=== PATIENT | female | born 1970 | race Caucasian/White ===

== ENCOUNTER 2024-08-03 15:09 | Emergency (ER) | payer BC, SELFPAY ==
[~2024-08-03 15:09] MED LIST: Iopamidol 370 76% 100 ML VIAL ONE
[2024-08-03] MEDS ORDERED: Ketorolac Tromethamine 30 MG (1 mL) VIAL ONE ×2 (15:19→18:00)
[2024-08-03] MEDS ORDERED: Ondansetron PF 4 MG/2 ML Vial ONE ×2 (15:20→18:00)
[2024-08-03] MEDS ORDERED: Sodium Chloride 0.9% 1,000 ML ONE (15:20)
[2024-08-03] MEDS ORDERED: fentaNYL 50 mcg/mL 1 mL Vial ONE (15:31)
[2024-08-03 15:36] LABS: #Basophils 0.1 thou/uL (0.0-0.2); #Lymphocytes 2.7 thou/uL (1.20-3.40); #Monocytes 0.7 thou/uL (0.11-0.59); #Neutrophils 10.2 thou/uL (1.40-6.50); %Basophils 1.1 % (0.0-1.0); %Eosinophils 0.3 % (0.0-10.0); %Lymphocytes 19.7 % (21.0-51.0); Hematocrit 44.1 % (36.0-47.0); Hemoglobin 14.5 g/dL (12.0-16.0); Mean Corpuscular HGB CONC 32.8 g/dL (32.0-36.0); Mean Corpuscular Hemoglobin 30.3 pg (27.0-31.0); Mean Corpuscular Volume 92.3 fl (78.0-98.0); Mean Platelet Volume 5.8 fL (7.4-10.4); Platelet Count 422 10x3/uL (130-400); RBC Distribution Width 11.3 % (11.5-14.5); Red Blood Cell (RBC) Count 4.78 mill/uL (4.20-5.40); White Blood Cell (WBC) Count 13.9 10x3/uL (4.8-10.8)
[2024-08-03 15:54] LABS: ALT (SGPT) 18 U/L (8-55); AST (SGOT) 17 U/L (5-34); Alkaline Phosphatase 119 U/L (40-110); Anion Gap 15 mmol/L (10-20); BUN (Urea Nitrogen) 18 mg/dL (9.8-20.1); Bilirubin, Total 0.6 mg/dL (0.2-1.2); Calc. Creatinine Clearance 0 mL/min (70-130); Calcium 10.3 mg/dL (7.8-10.44); Carbon Dioxide 23 mmol/L (22-29); Chloride 104 mmol/L (98-107); Estimated GFR 87; Globulin 3.9 g/dL (2.4-3.5); Glucose 99 mg/dL (70-105); Lipase 23 U/L (8-78); Protein, Total 7.9 g/dL (6.0-8.3); Sodium 138 mmol/L (136-145)
[2024-08-03] MEDS ORDERED: Morphine 2 MG/ML VIAL ONE ×2 (16:57→18:00)
[2024-08-03 17:24] LABS: Bilirubin Negative (Negative); Blood, Urine Moderate (Negative); Glucose, Urine (Dipstick) Negative (Negative); Ketone, Urine Trace mg/dL (Negative); Leukocyte Negative (Negative); Nitrite Negative (Negative); Protein, Urine (Dipstick) Negative (Neg-Trace); Urobilinogen 0.2 mg/dL (Less than 2)
[2024-08-03 17:27] LABS: Clarity Hazy (Clear)
[2024-08-03 17:29] LABS: CAUTI Indications for Culture Pelvic or flank pain; Squamous Epithelial 0-3 HPF (0-3); WBC/HPF 0-3 HPF (0-3)
[2024-08-03 17:30] LABS: Urine Culture Reflex No No
[2024-08-03] MEDS ORDERED: Tamsulosin HCl 0.4 MG CAP ONE (18:01)
[2024-08-03] MEDS ORDERED: HYDROcodone/Acetaminophen 10/325 mg Tablet ONE (18:24)
[2024-08-03] MEDS ORDERED: Ondansetron ODT 4 MG TAB ONE (19:07)
[2024-08-03] MEDS ORDERED: Oseltamivir 75 MG CAP ONE (19:07)
[2024-08-03] MEDS ORDERED: Ibuprofen 800 MG TAB ONE (19:07)
== END 2024-08-03 18:30 | disposition home or self-care (01) ==
LOC: NAV ERS 15:09
DX: N13.2 Hydronephrosis with renal and ureteral calculous obstruction (principal)
CPT/HCPCS: 74177; 80053; 81001; 83690; 85025; 96361; 96374; 96375; 96376; J1885; J2272; J2405; J3010; J7030; Q0162; Q9967